=== PATIENT | male | born 1990 | race Caucasian/White ===

== ENCOUNTER 2016-11-23 13:53 | Emergency (ER) | payer OTHER ==
[~2016-11-23] VITALS: Ht 175.3 cm; Wt 64.9 kg
[2016-11-23] MEDS ORDERED: KETOROLAC TROMETHAMINE 30 MG/ML INJ. IV ONE (15:00)
[2016-11-23] MEDS ORDERED: IV NORMAL SALINE 1000ML BAG 1,000 ML IV ONE (15:00)
[2016-11-23 15:04] LABS: BASO # 0.1 x10^3/uL (0.0-0.2); BASO % 1 % (0-3); EOS % 3 % (0-3); HEMATOCRIT 42.3 % (39.0-53.0); HEMOGLOBIN 14.5 g/dL (13.0-17.5); LYMPH # 2.1 x10^3/uL (1.0-4.8); LYMPH % 25 % (24-48); MEAN CORPUSCULAR HEMOGLOBIN 31 pg (25-35); MEAN CORPUSCULAR HGB CONC 34 g/dL (31-37); MEAN CORPUSCULAR VOLUME 90 fL (79-100); MONO % 12 % (0-9); NEUT % 60 % (31-73); PLATELET COUNT 192 x10^3/uL (140-400); RED BLOOD COUNT 4.71 x10^6/uL (4.30-5.70); RED CELL DISTRIBUTION WIDTH 13.4 % (11.5-14.5); WHITE BLOOD COUNT 8.6 x10^3/uL (4.0-11.0)
[2016-11-23 15:05] LABS: BILIRUBIN,URINE NEGATIVE (NEG); GLUCOSE,URINE NEGATIVE (NEG); NITRITE,URINE NEGATIVE (NEG); PROTEIN,URINE NEGATIVE (NEG-TRACE); UROBILINOGEN,URINE 0.2 mg/dL (0.2 mg/dL)
[2016-11-23 15:12] VITALS: BP 114/56
[2016-11-23 15:12] LABS: BACTERIA,URINE 0 /HPF (0-FEW); RBC,URINE 0 /HPF (0-2); WBC,URINE 0 /HPF (0-4)
[2016-11-23 15:18] LABS: CALCIUM 8.6 mg/dL (8.5-10.1); CREATININE 1.2 mg/dL (0.7-1.3); GFR 73.8; POTASSIUM 3.9 mmol/L (3.5-5.1)
[2016-11-23 15:24] LABS: ALBUMIN 3.5 g/dL (3.4-5.0); ALBUMIN/GLOBULIN RATIO 1.1 (1.0-1.7); TOTAL BILIRUBIN 0.2 mg/dL (0.2-1.0); TOTAL PROTEIN 6.6 g/dL (6.4-8.2)
[2016-11-23] MEDS ORDERED: CONTRAST GIVEN MC PRN (15:30)
[2016-11-23] MEDS ORDERED: IOHEXOL 300 MG/ML 75 ML VIAL IV ONE (15:45)
--- NOTE | 2016-11-23 16:25 | RAD ---
Examination: CT of the abdomen pelvis with IV contrast History: History of rectal bleeding, abdominal pain Comparison: None available Technique: Axial CT images of the abdomen pelvis were performed with IV contrast. Coronal and sagittal reformats are performed PQRS Compliance Statement: One or more of the following individualized dose reduction techniques were utilized for this examination: 1. Automated exposure control 2. Adjustment of the mA and/or kV according to patient size 3. Use of iterative reconstruction technique Findings: The visualized bibasal lungs grossly appears unremarkable. No evidence of free air identified in the abdomen. The visualized liver, adrenals grossly appears unremarkable. The gallbladder is minimally distended. Small cleft identified in the anterior spleen. The stomach is mildly distended. The visualized small bowel is nondilated. The appendix is not clearly identified however no evidence of inflammatory fat stranding identified in the right lower quadrant of the abdomen. There are few prominent mesenteric lymph nodes identified in the right lower quadrant of the abdomen measuring up to 1.1 cm Feces and gas noted in the colon. On series 2 image #20 in the sigmoid colon there is a small focus of hyperdensity identified. The bilateral kidneys enhance symmetrically The urinary bladder is mildly distended The caliber of the aorta grossly appears unremarkable No evidence of lytic bony destructive lesion. Impression: 1. Small 6 mm focus of hyperdensity identified in the sigmoid colon best seen on series 2 image #20 is probably hyperdense stool or less likely focus of active bleed. Correlate for bright red blood per rectum. If there is history of bright red blood per rectum, nuclear medicine GI bleed scan can be considered. 2. Few nonspecific prominent right lower quadrant mesenteric lymph nodes.
[2016-11-23] MEDS ORDERED: METR500T PO (17:05)
[2016-11-23] MEDS ORDERED: HYOS0.1265 SL (17:05)
[2016-11-23] MEDS ORDERED: CIPR500T94 PO (17:05)
--- NOTE | 2016-11-23 17:08 | PHYS DOC ---
Past Medical History Past Medical History: No Pertinent History Past Surgical History: Other Additional Past Surgical Histo: testicular hernia Alcohol Use: Occasionally Drug Use: None Adult General Chief Complaint Chief Complaint: BLOODY STOOL HPI HPI 6-year-old male with no significant past medical history now presents the emergency department after several days of diarrhea and then a small amount of blood in his stool over the last day. Patient has no dizziness or near syncope. He has no bleeding problems or history of coagulopathy nor is he anticoagulated. Per patient he had several days of nausea and vomiting which resolved and after which he avulsed some diarrhea over the last few days. Prior history of bowel problems. Patient has no fevers chills sweats or shaking chills. He occasionally has some crampy abdominal pain but this is not worse with movement. He has normal bladder habits and is otherwise asymptomatic. Review of Systems Review of Systems Constitutional: Denies fever or chills [] Eyes: Denies change in visual acuity, redness, or eye pain [] HENT: Denies nasal congestion or sore throat [] Respiratory: Denies cough or shortness of breath [] Cardiovascular: No additional information not addressed in HPI [] GI: Denies abdominal pain, nausea, vomiting, bloody stools or diarrhea [] : Denies dysuria or hematuria [] Musculoskeletal: Denies back pain or joint pain [] Integument: Denies rash or skin lesions [] Neurologic: Denies headache, focal weakness or sensory changes [] Endocrine: Denies polyuria or polydipsia [] Current Medications Current Medications Current Medications Medications (Trade) Dose Ordered Sig/Da Start Time Stop Time Status Last Admin Dose Admin Info (Do NOT chart on this entry -- for MONITORING) 1 each PRN DAILY PRN 11/23/16 15:30 11/25/16 15:29 Iohexol (Omnipaque 300 Mg/ml) 75 ml 1X ONCE 11/23/16 15:45 11/23/16 15:46 DC 11/23/16 15:35 75 ML Ketorolac Tromethamine (Toradol) 30 mg 1X ONCE 11/23/16 15:00 11/23/16 15:01 DC 11/23/16 15:09 30 MG Sodium Chloride 1,000 ml @ 1,000 mls/hr 1X ONCE 11/23/16 15:00 11/23/16 15:59 DC 11/23/16 15:09 1,000 MLS/HR Allergies Allergies Allergies Coded Allergies Type Severity Reaction Last Updated Verified cefaclor Allergy Unknown 05/09/14 No Physical Exam Physical Exam Well-appearing 26-year-old male no acute distress benign exam. normal bowel sounds no mass or megaly. Minimal diffuse tenderness but No focal tenderness Constitutional: Well developed, well nourished, no acute distress, non-toxic appearance. [] HENT: Normocephalic, atraumatic, bilateral external ears normal, oropharynx moist, no oral exudates, nose normal. [] Eyes: PERRLA, EOMI, conjunctiva normal, no discharge. [] Neck: Normal range of motion, no tenderness, supple, no stridor. [] Cardiovascular:Heart rate regular rhythm, no murmur [] Lungs & Thorax: Bilateral breath sounds clear to auscultation [] Abdomen: Bowel sounds normal, soft, no tenderness, no masses, no pulsatile masses. [] Skin: Warm, dry, no erythema, no rash. [] Back: No tenderness, no CVA tenderness. [] Extremities: No tenderness, no cyanosis, no clubbing, ROM intact, no edema. [] Neurologic: Alert and oriented X 3, normal motor function, normal sensory function, no focal deficits noted. [] Psychologic: Affect normal, judgement normal, mood normal. [] Current Patient Data Vital Signs Vital Signs Date Time Temp Pulse Resp B/P (MAP) Pulse Ox O2 Delivery O2 Flow Rate FiO2 11/23/16 15:12 66 20 114/56 (75) 99 11/23/16 14:12 97.9 Room Air 97.9 Lab Values Laboratory Tests Test 11/23/16 14:55 White Blood Count 8.6 x10^3/uL (4.0-11.0) Red Blood Count 4.71 x10^6/uL (4.30-5.70) Hemoglobin 14.5 g/dL (13.0-17.5) Hematocrit 42.3 % (39.0-53.0) Mean Corpuscular Volume 90 fL (79-100) Mean Corpuscular Hemoglobin 31 pg (25-35) Mean Corpuscular Hemoglobin Concent 34 g/dL (31-37) Red Cell Distribution Width 13.4 % (11.5-14.5) Platelet Count 192 x10^3/uL (140-400) Neutrophils (%) (Auto) 60 % (31-73) Lymphocytes (%) (Auto) 25 % (24-48) Monocytes (%) (Auto) 12 % (0-9) H Eosinophils (%) (Auto) 3 % (0-3) Basophils (%) (Auto) 1 % (0-3) Neutrophils # (Auto) 5.2 x10^3uL (1.8-7.7) Lymphocytes # (Auto) 2.1 x10^3/uL (1.0-4.8) Monocytes # (Auto) 1.1 x10^3/uL (0.0-1.1) Eosinophils # (Auto) 0.2 x10^3/uL (0.0-0.7) Basophils # (Auto) 0.1 x10^3/uL (0.0-0.2) Urine Collection Type Unknown Urine Color Yellow Urine Clarity Clear Urine pH 6.0 Urine Specific [place] 1.020 Urine Protein Negative mg/dL (NEG-TRACE) Urine Glucose (UA) Negative mg/dL (NEG) Urine Ketones (Stick) Negative mg/dL (NEG) Urine Blood Negative (NEG) Urine Nitrite Negative (NEG) Urine Bilirubin Negative (NEG) Urine Urobilinogen Dipstick 0.2 mg/dL (0.2 mg/dL) Urine Leukocyte Esterase Negative (NEG) Urine RBC 0 /HPF (0-2) Urine WBC 0 /HPF (0-4) Urine Bacteria 0 /HPF (0-FEW) Urine Mucus Mod /LPF Sodium Level 139 mmol/L (136-145) Potassium Level 3.9 mmol/L (3.5-5.1) Chloride Level 103 mmol/L (98-107) Carbon Dioxide Level 30 mmol/L (21-32) Anion Gap 6 (6-14) Blood Urea Nitrogen 14 mg/dL (8-26) Creatinine 1.2 mg/dL (0.7-1.3) Estimated GFR (Cockcroft-Gault) 73.8 BUN/Creatinine Ratio 12 (6-20) Glucose Level 93 mg/dL (70-99) Calcium Level 8.6 mg/dL (8.5-10.1) Total Bilirubin 0.2 mg/dL (0.2-1.0) Aspartate Amino Transferase (AST) 18 U/L (15-37) Alanine Aminotransferase (ALT) 20 U/L (16-63) Alkaline Phosphatase 56 U/L (46-116) Total Protein 6.6 g/dL (6.4-8.2) Albumin 3.5 g/dL (3.4-5.0) Albumin/Globulin Ratio 1.1 (1.0-1.7) Lipase 80 U/L (73-393) Laboratory Tests 11/23/16 14:55 Laboratory Tests 11/23/16 14:55 EKG EKG [] Radiology/Procedures Radiology/Procedures [] Course & Med Decision Making Course & Med Decision Making Pertinent Labs and Imaging studies reviewed. (See chart for details) Enzymes and symptoms consistent with gastroenteritis likely secondary to viral etiology. Patient has small amount of bloody diarrhea after several days of diarrhea likely mucosal irritation or lesion. Patient is stable with no active bleeding. Gl[place] greater than 14. Vital signs unremarkable. He is well- appearing with a nonfocal exam. CT shows possible small area of bleeding recent bleeding in his sigmoid colon however patient is totally stable in this regard. Discussed with him and his who is a nurse, will cover with an [place] less likely possibility of infectious etiology. Cipro and Flagyl prescribed as well as Levsin as needed for crampy pain. Patient and agree with outpatient follow-up and her were to follow up with PCP for reevaluation and referral to GI for further workup and treatment as needed including possible colonoscopy if this eventually becomes necessary and indicated. [] Dragon Disclaimer Dragon Disclaimer This electronic medical record was generated, in whole or in part, using a voice recognition dictation system. Departure Departure Impression: Primary Impression: Diarrhea Additional Impression: Rectal bleeding Disposition: 01 HOME, SELF-CARE Condition: STABLE Referrals: NO PCP (PCP) Patient Instructions: Bloody Diarrhea Additional Instructions: It is not clear what is causing her diarrhea over the last several days. We are prescribing U antibiotics to cover for the possibility of an infectious cause. Finished them as prescribed. Eston drink plenty of fluids. Despite her rectal bleeding or hemoglobin is about 14. This is normal means that your body is keeping up with whatever degree of bleeding or having anterior stool. CAT scan shows a small area of either dense stool or possible bleeding in her sigmoid colon however it seems more likely to be stool as you're not currently bleeding. Your labs and CAT scan are otherwise unremarkable Follow-up with your doctor Ulysses for reevaluation and referral to a GI doctor to arrange colonoscopy further workup and definitive diagnosis, and treatment as needed. Return immediately for new severe or worsening symptoms specifically for uncontrolled pain or severe bleeding. Scripts Hyoscyamine Sulfate (LEVSIN-SL) 0.125 Mg Tab.subl 0.125 MG SL TID Y for crampy abdominal pain, #21 TAB Prov: JIM HOLLINGSWORTH MD 11/23/16 Metronidazole (FLAGYL) 500 Mg Tablet 1 TAB PO TID, #21 TAB Prov: JIM HOLLINGSWORTH MD 11/23/16 Ciprofloxacin Hcl (CIPRO) 500 Mg Tablet 1 TAB PO BID, #14 TAB Prov: JIM HOLLINGSWORTH MD 11/23/16 Problem Qualifiers JIM HOLLINGSWORTH MD Nov 23, 2016 17:08
== END 2016-11-23 17:17 | disposition home or self-care (01) ==
LOC: ER 13:53
DX: R19.7 Diarrhea, unspecified (principal); K62.5 Hemorrhage of anus and rectum; R10.9 Unspecified abdominal pain; Z88.8 Allergy status to other drugs, medicaments and biological substances
CPT/HCPCS: 36415; 74177; 80053; 81001; 83690; 85027; 96361; 96374; 99285; J1885; J7030; Q9967